=== PATIENT | female | born 1940 | race Caucasian/White ===

== ENCOUNTER 2022-11-25 16:55 | Inpatient (IN) | payer MEDICARE ==
[2022-11-25] MEDS ORDERED: Ondansetron ODT 4 MG TAB PO PRN (23:05)
[2022-11-25] MEDS ORDERED: Acetaminophen 325 MG TAB PO PRN (23:05)
[2022-11-25] MEDS ORDERED: Senokot S 8.6-50 MG TAB PO PRN (23:05)
[2022-11-25] MEDS ORDERED: Ondansetron PF 4 MG/2 ML Vial IVP PRN (23:05)
[2022-11-25] MEDS: Sodium Chloride 0.9% 1,000 ML IV SCH (23:52)
[2022-11-25] MEDS: HYDROcodone/Acetaminophen 5/325 mg Tablet PO PRN (23:52)
[2022-11-26 01:42] VITALS: BMI 32.0
[2022-11-26 04:34] LABS: #Basophils 0.1 thou/uL (0.0-0.2); #Eosinphils 0.5 thou/uL (0.0-0.7); #Lymphocytes 2.3 thou/uL (1.20-3.40); #Monocytes 0.8 thou/uL (0.11-0.59); #Neutrophils 1.8 thou/uL (1.40-6.50); %Basophils 1.3 % (0.0-1.0); %Eosinophils 8.4 % (0.0-10.0); %Lymphocytes 42.1 % (21.0-51.0); %Monocytes 14.7 % (0.0-10.0); %Neutrophils 33.5 % (42.0-75.0); Hemoglobin 12.2 g/dL (12.0-16.0); Mean Corpuscular HGB CONC 32.2 g/dL (32.0-36.0); Mean Corpuscular Volume 93.3 fl (78.0-98.0); Mean Platelet Volume 8.6 fL (7.4-10.4); Platelet Count 185 10x3/uL (130-400); RBC Distribution Width 12.5 % (11.5-14.5); Red Blood Cell (RBC) Count 4.07 mill/uL (4.20-5.40); White Blood Cell (WBC) Count 5.4 10x3/uL (4.8-10.8)
[2022-11-26 05:05] LABS: Anion Gap 11 mmol/L (10-20); BUN (Urea Nitrogen) 22 mg/dL (9.8-20.1); CK (CPK) 1693 U/L (29-168); Calc. Creatinine Clearance 49 mL/min (70-130); Carbon Dioxide 28 mmol/L (23-31); Chloride 104 mmol/L (98-107); Estimated GFR 58; Glucose 83 mg/dL (83-110); Potassium 3.2 mmol/L (3.5-5.1); Sodium 140 mmol/L (136-145)
[2022-11-26] MEDS ORDERED: Potassium Chloride 40 MEQ in Premix Bag 1 BAG IVPB SCH (09:00)
[2022-11-26] MEDS: Potassium Chloride 20 MEQ in Premix Bag 1 BAG IVPB SCH ×2 (09:45→11:41)
[2022-11-26] MEDS: Sodium Chloride 0.9% 1,000 ML IV SCH (11:42)
[2022-11-26] MEDS: HYDROcodone/Acetaminophen 5/325 mg Tablet PO PRN (21:39)
[2022-11-27 04:29] LABS: #Basophils 0.1 thou/uL (0.0-0.2); #Eosinphils 0.5 thou/uL (0.0-0.7); #Lymphocytes 2.5 thou/uL (1.20-3.40); #Monocytes 0.8 thou/uL (0.11-0.59); #Neutrophils 2.3 thou/uL (1.40-6.50); %Basophils 1.1 % (0.0-1.0); %Eosinophils 8.3 % (0.0-10.0); %Lymphocytes 40.6 % (21.0-51.0); %Monocytes 12.2 % (0.0-10.0); %Neutrophils 37.8 % (42.0-75.0); Hemoglobin 12.1 g/dL (12.0-16.0); Mean Corpuscular Hemoglobin 31.5 pg (27.0-31.0); Mean Corpuscular Volume 92.9 fl (78.0-98.0); Platelet Count 178 10x3/uL (130-400); RBC Distribution Width 12.6 % (11.5-14.5); Red Blood Cell (RBC) Count 3.84 mill/uL (4.20-5.40); White Blood Cell (WBC) Count 6.2 10x3/uL (4.8-10.8)
[2022-11-27] MEDS: HYDROcodone/Acetaminophen 5/325 mg Tablet PO PRN ×2 (04:38→18:44)
[2022-11-27 04:48] LABS: CKMB 6.5 ng/mL (0-6.6)
[2022-11-27 04:50] LABS: ALT (SGPT) 27 U/L (8-55); AST (SGOT) 33 U/L (5-34); Albumin 3.3 g/dL (3.4-4.8); Alkaline Phosphatase 52 U/L (40-110); Anion Gap 10 mmol/L (10-20); BUN (Urea Nitrogen) 18 mg/dL (9.8-20.1); Bilirubin, Total 0.4 mg/dL (0.2-1.2); Calc. Creatinine Clearance 54 mL/min (70-130); Calcium 8.6 mg/dL (7.8-10.44); Carbon Dioxide 27 mmol/L (23-31); Chloride 104 mmol/L (98-107); Estimated GFR 64; Globulin 2.8 g/dL (2.4-3.5); Glucose 93 mg/dL (83-110); Magnesium 1.8 mg/dL (1.6-2.6); Potassium 3.7 mmol/L (3.5-5.1); Protein, Total 6.1 g/dL (5.8-8.1); Sodium 137 mmol/L (136-145)
[2022-11-27] MEDS: Simvastatin 10 MG TAB PO SCH (21:32)
[2022-11-28 05:04] LABS: #Basophils 0.1 thou/uL (0.0-0.2); #Eosinphils 0.5 thou/uL (0.0-0.7); #Lymphocytes 2.4 thou/uL (1.20-3.40); #Monocytes 0.9 thou/uL (0.11-0.59); #Neutrophils 3.1 thou/uL (1.40-6.50); %Eosinophils 7.3 % (0.0-10.0); %Lymphocytes 33.9 % (21.0-51.0); %Monocytes 13.3 % (0.0-10.0); %Neutrophils 44.5 % (42.0-75.0); Hemoglobin 12.7 g/dL (12.0-16.0); Mean Corpuscular Hemoglobin 31.3 pg (27.0-31.0); Mean Corpuscular Volume 92.2 fl (78.0-98.0); Mean Platelet Volume 8.8 fL (7.4-10.4); Platelet Count 183 10x3/uL (130-400); RBC Distribution Width 12.6 % (11.5-14.5); Red Blood Cell (RBC) Count 4.07 mill/uL (4.20-5.40); White Blood Cell (WBC) Count 7.1 10x3/uL (4.8-10.8)
[2022-11-28 05:22] LABS: Anion Gap 12 mmol/L (10-20); BUN (Urea Nitrogen) 19 mg/dL (9.8-20.1); Calc. Creatinine Clearance 53 mL/min (70-130); Calcium 8.9 mg/dL (7.8-10.44); Carbon Dioxide 26 mmol/L (23-31); Chloride 104 mmol/L (98-107); Estimated GFR 63; Glucose 98 mg/dL (83-110); Magnesium 1.9 mg/dL (1.6-2.6); Potassium 4.2 mmol/L (3.5-5.1); Sodium 138 mmol/L (136-145)
[2022-11-28] MEDS: Ferrous Sulfate 325 MG TAB PO SCH (08:36)
[2022-11-28] MEDS: Simvastatin 10 MG TAB PO SCH (21:12)
[2022-11-29 05:27] LABS: Anion Gap 11 mmol/L (10-20); BUN (Urea Nitrogen) 20 mg/dL (9.8-20.1); Calc. Creatinine Clearance 53 mL/min (70-130); Calcium 9.2 mg/dL (7.8-10.44); Carbon Dioxide 28 mmol/L (23-31); Chloride 103 mmol/L (98-107); Estimated GFR 63; Glucose 104 mg/dL (83-110); Potassium 3.9 mmol/L (3.5-5.1); Sodium 138 mmol/L (136-145)
[2022-11-29] MEDS: HYDROcodone/Acetaminophen 5/325 mg Tablet PO PRN ×2 (05:41→19:42)
[2022-11-29] MEDS: Ferrous Sulfate 325 MG TAB PO SCH (10:28)
[2022-11-29] MEDS: Simvastatin 10 MG TAB PO SCH (20:07)
[2022-11-30] MEDS: HYDROcodone/Acetaminophen 5/325 mg Tablet PO PRN (00:17)
[2022-11-30 04:50] LABS: Anion Gap 10 mmol/L (10-20); BUN (Urea Nitrogen) 24 mg/dL (9.8-20.1); Calc. Creatinine Clearance 53 mL/min (70-130); Calcium 9.2 mg/dL (7.8-10.44); Carbon Dioxide 28 mmol/L (23-31); Chloride 104 mmol/L (98-107); Estimated GFR 63; Glucose 93 mg/dL (83-110); Potassium 4.2 mmol/L (3.5-5.1); Sodium 138 mmol/L (136-145)
[2022-11-30] MEDS: Ferrous Sulfate 325 MG TAB PO SCH (08:25)
[2022-11-30] MEDS ORDERED: Apixaban 5 MG TAB PO SCH (21:00)
[2022-11-30] MEDS: Simvastatin 10 MG TAB PO SCH (21:45)
[2022-12-01] MEDS: HYDROcodone/Acetaminophen 5/325 mg Tablet PO PRN ×3 (05:30→20:54)
[2022-12-01] MEDS: Apixaban 5 MG TAB PO SCH ×2 (10:20→20:54)
[2022-12-01] MEDS: Ferrous Sulfate 325 MG TAB PO SCH (10:20)
[2022-12-01] MEDS: Simvastatin 10 MG TAB PO SCH (20:54)
[2022-12-02] MEDS: HYDROcodone/Acetaminophen 5/325 mg Tablet PO PRN (01:20)
[2022-12-02] MEDS: Apixaban 5 MG TAB PO SCH (09:42)
[2022-12-02] MEDS: Ferrous Sulfate 325 MG TAB PO SCH (09:42)
[2022-12-02 12:10] VITALS: TEMP 97.5
[2022-12-02 15:36] VITALS: BP 128/68
== END 2022-12-02 16:35 | DRG 309 ==
LOC: 2NO 16:55 → OBSVTOIN 11-27 10:57
PROVIDERS: ADMIT Internal Medicine; ATTEND Internal Medicine
DX: I48.19 Other persistent atrial fibrillation (principal); M62.82 Rhabdomyolysis; N17.9 Acute kidney failure, unspecified; Z66 Do not resuscitate; I10 Essential (primary) hypertension; N32.81 Overactive bladder; E78.5 Hyperlipidemia, unspecified; E87.6 Hypokalemia; R29.6 Repeated falls; Z88.5 Allergy status to narcotic agent; Z79.899 Other long term (current) drug therapy; Z79.82 Long term (current) use of aspirin; Z82.49 Family history of ischemic heart disease and other diseases of the circulatory system; Z91.81 History of falling
CPT/HCPCS: 36415; 80048; 80053; 82550; 82553; 83735; 85025; 93306; 93880; 96372; G0378; J1650; J3480; J7050

== ENCOUNTER 2023-05-05 08:53 | Day surgery (SDC) | payer MEDICARE ==
[2023-05-05 10:39] LABS: #Basophils 0.1 thou/uL (0.0-0.2); #Eosinphils 0.2 thou/uL (0.0-0.7); #Monocytes 0.8 thou/uL (0.11-0.59); #Neutrophils 3.1 thou/uL (1.40-6.50); %Basophils 1.1 % (0.0-1.0); %Eosinophils 3.6 % (0.0-10.0); %Lymphocytes 25.1 % (21.0-51.0); %Monocytes 13.7 % (0.0-10.0); %Neutrophils 56.1 % (42.0-75.0); Hematocrit 39.2 % (36.0-47.0); Hemoglobin 13.2 g/dL (12.0-16.0); Mean Corpuscular HGB CONC 33.7 g/dL (32.0-36.0); Mean Corpuscular Hemoglobin 31.3 pg (27.0-31.0); Mean Corpuscular Volume 92.9 fl (78.0-98.0); Mean Platelet Volume 11.3 fL (7.4-10.4); Platelet Count 171 10x3/uL (130-400); RBC Distribution Width 13.4 % (11.5-14.5); Red Blood Cell (RBC) Count 4.22 mill/uL (4.20-5.40); White Blood Cell (WBC) Count 5.5 10x3/uL (4.8-10.8)
[2023-05-05 11:00] LABS: Anion Gap 14 mmol/L (10-20); BUN (Urea Nitrogen) 13 mg/dL (9.8-20.1); Calc. Creatinine Clearance 46 mL/min (70-130); Calcium 9.9 mg/dL (7.8-10.44); Carbon Dioxide 24 mmol/L (23-31); Chloride 95 mmol/L (98-107); Estimated GFR 66; Glucose 84 mg/dL (83-110); Potassium 3.1 mmol/L (3.5-5.1); Sodium 130 mmol/L (136-145)
[2023-05-05] MEDS ORDERED: Lidocaine 1% PF 5 ML VIAL ONE (11:12)
[2023-05-05] MEDS ORDERED: PROPOFOL 200 MG/20 ML VIAL ONE (11:12)
[2023-05-05 11:58] VITALS: BMI 23.0
== END 2023-05-05 13:10 | disposition home or self-care (01) ==
LOC: SDC 08:53
PROVIDERS: ATTEND Internal Medicine Cardiovascular Disease
PROC: B246ZZ4 Ultrasonography of Right and Left Heart, Transesophageal (ICD-10-PCS; principal; 2023-05-05)
DX: I48.0 Paroxysmal atrial fibrillation (principal); R55 Syncope and collapse; Z88.5 Allergy status to narcotic agent
CPT/HCPCS: 80048; 85025; 93312; J2704